=== PATIENT | male | born 1960 | race Caucasian/White ===

== ENCOUNTER → 2023-11-30 07:34 | Outpatient (CLI) | payer BC, SELFPAY ==
[2023-11-30 09:00] LABS: Hematocrit 42.8 % (41-53); Hemoglobin 14.8 g/dL (13.5-17.5); Mean Corpuscular HGB Conc 34.6 % (30-36); Mean Corpuscular Volume 98.5 fL (80-100); Platelet Count 191 X10^3/uL (150-400); Red Blood Cell Count 4.35 X10^6/uL (4.5-5.9); Red Cell Distribution Width 13.2 % (11.6-14.8); White Blood Cell Count 6.2 X10^3/uL (4.5-11.0)
[2023-11-30 09:22] LABS: Alanine Aminotransferase 26 IU/L (<50); Albumin 4.1 g/dL (3.5-5.0); Albumin Globulin Ratio 1.4 (1.0-2.8); Alkaline Phosphatase 77 U/L (38-126); Aspartate Aminotransferase 39 IU/L (17-59); BUN Creatinine Ratio 18.8 (6-22); Blood Urea Nitrogen 13 mg/dL (9-20); Calcium 9.3 mg/dL (8.4-10.2); Carbon Dioxide 29 mmol/L (22-32); Chloride 104 mmol/L (98-107); Cholesterol 198 mg/dL (140-199); Estimated Glomerular Filt Rate > 60 mL/min (>60); Globulin 2.9 g/dL (1.7-4.1); Glucose 92 mg/dL (80-110); HDL Cholesterol 55 mg/dL (40-60); HEMOLYSIS < 15 (0-50); LDL Cholesterol Calculated 126 mg/dL (<100); Potassium 4.3 mmol/L (3.4-5.1); Sodium 136 mmol/L (137-145); Triglycerides 86 mg/dL (35-150)
[2023-11-30 09:58] LABS: Prostate Specific Antigen 1.34 ng/mL (0.10-4.00)
[2023-11-30 11:01] LABS: Appearance Urine UA CLEAR; Bilirubin Urine UA NEGATIVE (NEGATIVE); Color Urine UA YELLOW; Glucose Urine UA NEGATIVE (Negative); Ketones Urine UA NEGATIVE (NEGATIVE); Leukocyte Esterase Urine UA NEGATIVE (NEGATIVE); Nitrite Urine UA NEGATIVE (Negative); Occult Blood Urine UA NEGATIVE (Negative); Protein Urine UA NEGATIVE (Negative); Urobilinogen Urine UA 0.2 E.U./dL (0.2); pH Urine UA 7.5 (4.5-8.0)
[2023-11-30 11:29] LABS: Bacteria Urine None Seen; Culture Indicated Urine Cult Not Indicated; RBC Urine 0-1/HPF (0-5/HPF); Squamous Epithelial Cell Urine 0-1 /HPF (0-5/HPF); Urine Volume 10mL (spun); WBC Urine 0-1/HPF (0-5/HPF)
== END ==
LOC: LAB 07:37
PROVIDERS: PCP Specialist; Referring Provider Specialist; Visit Provider Specialist
DX: Z00.00 Encounter for general adult medical examination without abnormal findings (principal)
CPT/HCPCS: 36415; 80053; 80061; 81001; 84153; 85027

== ENCOUNTER → 2024-01-18 14:48 | Outpatient (CLI) | payer OTHER, SELFPAY ==
[2024-01-18 20:43] LABS: Influenza A - CEPHEID Flu A NEGATIVE (NEGATIVE); Influenza B - CEPHEID Flu B NEGATIVE (NEGATIVE); Respiratory Syncytial Virus Negative (Negative)
[2024-01-18 20:44] LABS: COVID-19 CEPHEID 4-PLEX PCR Negative (Negative)
== END ==
PROVIDERS: PCP Family Medicine; Visit Provider Family Medicine
DX: J30.2 Other seasonal allergic rhinitis (principal); R09.81 Nasal congestion
CPT/HCPCS: 0241U

== ENCOUNTER → 2024-02-15 06:42 | Outpatient (CLI) | payer OTHER, SELFPAY ==
[2024-02-15 09:46] LABS: Prostate Specific Antigen 0.963 ng/mL (0.10-4.00)
== END ==
PROVIDERS: PCP Family Medicine; Referring Provider Specialist; Visit Provider Specialist
DX: N40.1 Benign prostatic hyperplasia with lower urinary tract symptoms (principal); N13.8 Other obstructive and reflux uropathy
CPT/HCPCS: 36415; 84153

== ENCOUNTER 2024-03-20 08:20 | Day surgery (SDC) | payer OTHER, SELFPAY ==
--- NOTE | 2024-03-20 08:52 | P.HP_ITS ---
History of Present Illness History of Present Illness Date Patient Seen: 03/20/24 Time Patient Seen: 08:52 Chief complaint: Colonoscopy Narrative: Kieran is a 63-year-old man here for colonoscopy. His last colonoscopy was about 7 years ago in [place] and was normal. He has had polyps on prior colonoscopies. 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 [facility] Medical History Hx of colonic polyps Surgical History History of vasectomy [place] teeth removed (09/03/79) Hx of left knee surgery (09/03/92) Family History Mother Ovarian carcinoma Uterine cancer Aunt Colorectal cancer Grandmother Breast cancer Social History marital status: number of children: 0 household members: spouse occupational status: previously employed Smoking Status: Never smoker substance use type: does not use caffeine: No Type(s) of exercise: aerobic frequency: 5-6 times per week duration: 60-90 minutes/day Meds Home Medications and Allergies Home Medications Medication Instructions Recorded Confirmed Type tamsulosin 0.4 mg capsule 0.4 mg PO 2XD 01/18/24 03/13/24 History Allergies Allergy/AdvReac Type Severity Reaction Status Date / Time No Known Drug Allergies Allergy Verified 03/20/24 08:53 Exam Const General: healthy appearing Resp Effort & Inspection: normal respiratory effort Assessment & Plan Assessment and plan (1) Hx of colonic polyps: Status: Acute (2) CHEK2 gene mutation positive: Status: Acute Plan Kieran is a 63-year-old man with a history of colon polyps. We reviewed the risks and benefits of colonoscopy and he would like to proceed. Time-Based Coding :: [TOTAL MINUTES] spent with patient and on the chart (including review of chart, obtaining history, exam, reviewing outside data, placing orders, documenting exam and treatment plan, and counseling patient) on [DATE].
[2024-03-20 08:55] VITALS: BP 144/80; PULSE 62; RESP 18; TEMP 36.6; O2SAT 100
[2024-03-20] MEDS: LACTATED RINGERS 1,000 ML 42 ML IV (09:10)
--- NOTE | 2024-03-20 09:54 | PM.OP.COLON ---
Operative Date/Time/Diagnoses Date of procedure: 03/20/24 Time of procedure: 09:54 Pre-op diagnosis: History of polyps Post-op diagnosis: same Procedure & Clinicians Study performed: Colonoscopy Same procedure as scheduled: Yes Surgeon: José Antonio Vincent Procedure Notes Procedure in detail: Surgeon: José Antonio Vincent MD Anesthesia: Myrtle aCsey CRNA Procedure: The patient was brought to the endoscopy suite, placed in left lateral decubitus position. The patient was connected to monitoring devices. A time-out was performed. Sedation was administered. Once the patient was adequately sedated, a digital rectal exam was performed and was normal. The scope was then inserted and advanced to the cecum where the appendiceal orifice was identified and photographed. The scope was then slowly withdrawn over greater than 6 minutes. The mucosa was thoroughly inspected. No polyps were found. The scope was retroflexed in the rectum. No other abnormalities were seen. The scope was straightened and removed. The patient was awakened and brought to recovery. Scope withdrawal time: 8 minutes Sedation time: 18 minutes EBL: 0 Findings: Normal colon Post-procedure Recommendations: Colonoscopy in 10 years Disposition: PACU
[2024-03-20 09:58] VITALS: BP 118/74; PULSE 50; RESP 13; TEMP 36.8; O2SAT 99
[2024-03-20 10:03] VITALS: BP 118/75; PULSE 52; RESP 17; O2SAT 99
[2024-03-20 10:08] VITALS: BP 119/75; PULSE 48; RESP 13; O2SAT 98
[2024-03-20 10:09] VITALS: BP 118/69; PULSE 51; RESP 13; TEMP 36.2; O2SAT 100
== END 2024-03-20 10:21 | disposition home or self-care (01) ==
PROVIDERS: PCP Family Medicine; Referring Provider Surgery; Visit Provider Surgery
PROC: 0DJD8ZZ Inspection of Lower Intestinal Tract, Via Natural or Artificial Opening Endoscopic (ICD-10-PCS; CPT 45378; principal; 2024-03-20 09:15)
DX: Z12.11 Encounter for screening for malignant neoplasm of colon (principal); Z86.010 Personal history of colon polyps; Z15.89 Genetic susceptibility to other disease
CPT/HCPCS: 45378; J2704

== ENCOUNTER → 2024-06-04 09:13 | Outpatient (CLI) | payer OTHER, SELFPAY | PROVIDERS: PCP Family Medicine; Visit Provider Urology | DX: Z01.818 Encounter for other preprocedural examination (principal); N40.1 Benign prostatic hyperplasia with lower urinary tract symptoms; N13.8 Other obstructive and reflux uropathy | CPT/HCPCS: 87086 ==

== ENCOUNTER 2024-06-16 06:09 | Day surgery (SDC) | payer OTHER, SELFPAY ==
[2024-06-11 12:08] VITALS: BMI 22.8
[2024-06-16] VITALS (16 sets, daily range): BP systolic 115–148; BP diastolic 49–80; PULSE 50–63; RESP 9–18; TEMP 36.2–37.7; O2SAT 98–100; BMI 22.5
--- NOTE | 2024-06-16 | PATH_ITS ---
[facility] Accession Number: [id number] No. of containers..01 Tissue . 01 Material submitted: . prostate - PROSTATE . 01 Diagnosis: PROSTATIC TISSUE, TRANSURETHRAL RESECTION: Benign prostatic parenchyma, weight 1 gram, with focal mild chronic inflammation and stromal hyperplasia. Negative for atypia or invasive carcinoma. Benign urothelial mucosa also present. MRV 06/19/2024 1521 Local . 01 Electronically signed: . Laxmi Palma MD, Pathologist NPI- [id number] . 01 Gross description: . Received in formalin with two patient identifiers and prostate tissue, are multiple rey soft tissue fragments admixed with hemorrhagic material aggregating to 2.5 x 1.9 x 0.3 cm and weighing 1 gram. No lesions are identified. Specimen is submitted entirely in A1. ([id number]) /MRV 06/18/2024 1723 Local . 01 Pathologist provided ICD-10: N40.1 . 01 CPT . 372555 Specimen Comment: A courtesy copy of this report has been sent to [facility] Pathology Performed at: [address] [address], [place], [place] [id number] MD Rey Patterson MD Phone: [phone]
[2024-06-16] MEDS: ACETAMINOPHEN 325 MG TABLET 975 MG PO (06:48)
[2024-06-16] MEDS: LACTATED RINGERS 1,000 ML 42 ML IV ×2 (06:50→08:41)
--- NOTE | 2024-06-16 07:27 | SUR.OPER ---
Lithotomy on padded OR bed, head on pillow, arms secured on padded arm boards at <90 degrees abduction. Legs secured in padded yellow fins stirrups.
--- NOTE | 2024-06-16 07:34 | PM.PREOP ---
Pre-operative Note COVID-19 COVID-19 status: Not tested Interval Note History & Physical reviewed/Exam performed by Physician: Yes Changes to H&P: No
[2024-06-16] MEDS: CEFAZOLIN 2 GM/100 ML PREMIX 100 ML IV (07:44)
--- NOTE | 2024-06-16 09:27 | P.OP_ITS ---
Procedure & Clinicians Procedure: Cystoscopy Aquablation Same procedure as scheduled: Yes Indications: 63 y/o M w/ BPH and bothersome LUTS that are not well controlled on Tamsulosin 0.4mg BID and strongly desires surgical management via an Aquablation procedure. Surgeon: Sher Moralez Click Yes if Unassisted: Yes Anesthesia Type: General Operative Notes Findings: Trilobar hypertrophy, small intravesical median lobe Closure Type: not applicable Specimen(s): other (Prostate chips) Applied: catheter Estimated Blood Loss (mL): 50 Blood products transfused: none Procedure in detail: After informed consent was obtained, the patient was identified brought to the operating room where he was placed in his supine position on the table. Once there anesthesia was induced and maintained. Ensuring an adequate level of anesthesia the patient was transitioned to the lithotomy position where after time-out he was prepped. After prepping, ensuring an adequate level of anesthesia, administration IV antibiotics and time-out 60 cc of ultrasound gel was instilled within the rectum and the ultrasound probe which had been attached to the TRUS stepper which was attached to the TRUS stepper articulating arm which was secured to the bed was advanced into the rectum under direct vision via the ultrasound. The ultrasound probe was then aligned and confirmation made that the prostate was centered and aligned in both the sagittal and transverse views. The bladder neck, verumontanum, central and transitional zones were identified. With the ultrasound in place and adjusted the patient was then draped in a sterile fashion. With the patient draped the 24 Occitan aqua beam handpiece was then inserted through the urethra and advanced into the bladder. Cystoscopy was then performed and no concerning bladder mass or lesions were noted. Bilateral ureteral orifices were noted to be orthotopic in nature. As the cystoscope was advanced the level of the sphincter, verumontanum, bladder neck were all identified via ultrasound and under direct vision. The aqua beam hand place was then secured to the handpiece articulating arm which had been secured to the bed. The Aquablation handpiece and TRUS probe were confirmed to be parallel and colinear. Confirmation was then made that the aqua beam handpiece and nozzle was centered and anterior to the bladder neck. The cystoscope was then retracted under direct vision in the sphincter and verumontanum were identified. The tip of the cystoscope was then placed proximal to the external sphincter. Compression was applied with the TRUS probe to the prostate. The alignment of the TRUS probe and aqua beam handpiece was once again confirmed. Horizontal alignment of the handpiece water jet was then performed. With these adjustments made, the treatment zones were then planned using real-time ultrasound. In the largest transverse view of the prostate the depth and radial angles were determined and set again in the transverse view of the prostate. In the longitudinal and sagittal view the Aquablation nozzle was identified and its position registered with the software and robot. The treatment contours were then determined and adjusted to reflect the intended margins of resection. Following our plan confirmation, the Aquablation resection treatment was started. A 2nd pass was then completed in similar fashion after the 1st pass had been completed. At this point, the Aqua hand piece was removed from the urethra. The 26Fr resectoscope was then inserted into the urethra and cystoscopy was repeated. The [employer] teacher was utilized to evacuate the blood clots from the bladder. The bladder neck was then resected using the bipolar Gyrus loop. Bilateral ureteral orifices were again identified and noted to be intact at case end. Hemostasis was obtained and noted to be excellent at case end. The resectoscope was then removed and a 24Fr Yarely 3-way hematuria catheter was inse rted through the urethra and into the bladder. 45cc of sterile water was utilized for balloon insufflation. Efflux was noted to be clear at case end. Anesthesia was reversed, he was extubated in the OR and transferred to the PACU in stable condition for recovery. Complications: none Post-operative Condition: stable Disposition: PACU Plan for aftercare: Will re-evaluate in a few hours and determine if he will be sent home with the catheter in place or be admitted overnight for continuous bladder irrigation.
--- NOTE | 2024-06-16 11:33 | SUR.PHASEII ---
Report called to [facility]
--- NOTE | 2024-06-16 11:46 | PC.NURSE ---
Patient arrived to room 207 at 1145, A&OX4, denies pain, VSS, on RA. He is able to move himself from gurney to bed. Oriented to room, admission completed, call light in reach, CBI running (fruit punch colored) [place] draining adequately, frequent rounding. is supportive at bedside.
--- NOTE | 2024-06-17 06:57 | PC.NURSE ---
CBI stopped at 0620, pt ambulated in the hallway 4 times. total output for assistant secretary was 3,300 ml and total CBI WAS 4,500.
--- NOTE | 2024-06-17 07:58 | PM.PN.1 ---
Subjective Subjective Date Patient Seen: 06/17/24 Time Patient Seen: 07:45 Interval history: 63 y/o M w/ BPH and bothersome LUTS who strongly desired surgical management via an Aquablation procedure. He tolerated the procedure without any complications and had an uneventful night in the hospital. He was tolerating a regular diet without nausea or vomiting and his pain remained well controlled. His CBI was discontinued this AM and he was able to ambulate 3-4 laps in the hallways without issues. He is eager to have his catheter removed. Exam Vital Signs (past 8 hours): Oxygen Delivery Method Room Air Oxygen Flow Rate 0 Narrative Exam Narrative: GEN: Alert and oriented X3. No acute distress. Well-nourished. EYES: PERRLA, EOMI. HENT: Moist mucus membranes, no scleral icterus, normal neck ROM. RESP: Unlabored breathing, equal rise and fall of chest bilaterally, no cyanosis appreciated. CV: No peripheral edema, unremarkable heart rate. ABD: Soft, non-tender, non-distended, no palpable masses. : Price catheter secured and draining light pink urine without clots. EXT: No edema, clubbing or cyanosis. SKIN: No rashes or lesions. NEURO: No focal neurologic deficits, CN II-XII grossly intact. PSYCH: Cooperative, appropriate mood and affect. [facility] Medical History Hx of colonic polyps Surgical History History of vasectomy [place] teeth removed (09/03/79) Hx of left knee surgery (09/03/92) Family History Mother Ovarian carcinoma Uterine cancer Aunt Colorectal cancer Grandmother Breast cancer Social History marital status: number of children: 0 household members: spouse occupational status: previously employed Smoking Status: Never smoker alcohol intake: never substance use type: does not use caffeine: No Type(s) of exercise: aerobic frequency: 5-6 times per week duration: 60-90 minutes/day Assessment & Plan Assessment and plan (1) BPH w urinary obs/LUTS: Status: Acute Plan: 63 y/o M w/ h/o BPH and bothersome LUTS who strongly desired surgical management via an Aquablation procedure. He is POD 1 and is recovering as expected. His price catheter was removed this AM. - Will continue to hydrate well - Will contact the nursing team every time that he urinates so that they can record his UOP and his PVR - Will check on him around lunch, should he be adequately emptying his bladder and his urine remains relatively clear will discharge home. Time-Based Coding :: [TOTAL MINUTES] spent with patient and on the chart (including review of chart, obtaining history, exam, reviewing outside data, placing orders, documenting exam and treatment plan, and counseling patient) on [DATE]. Quality VTE Deep Vein Thrombosis/Pulmonary Embolism Present on Admission: No PROFEE Charge codes Subsequent inpatient/observation care: 20250
[2024-06-17 08:00] VITALS: BP 138/76; PULSE 54; RESP 16; TEMP 37.2; O2SAT 99
--- NOTE | 2024-06-17 12:54 | PC.NURSE ---
Patient is A&OX4, VSS, afebrile. He is ambulatory this a.m. walking laps around nursing station after CBI clamped at 0630. He tolerates this well. Urine pink colored in Price. MD at bedside early this a.m. to d/c price. Patient voids at 1000- 350 cc with PVR 65 and again at 1100 he voids 375cc with a PVR of 87. He tolerates breakfast well and denies any symptoms or pain with ambulation. MD at bedside at lunch to d/c patient. He verbalizes understanding of discharge instructions, OTC meds, activity limitations and follow up appointment with urology. He is escorted out of the hospital by FLIGHT INSPECTOR to private vehicle with for discharge home today at 1245 pm.
--- NOTE | 2024-06-17 14:26 | CM.DANOTE ---
Initial DCP Assessment Visit Note Reviewed EMR and team rounds for medical status and updates. Pt discharged prior to this PATIENT SERVICES COORDINATOR's ability to meet with him f/f due to floor triage needs. Pt lives with his at baseline in their own home in [place]. He was medically cleared for home d/c and his transported him home. He will have OP Urology f/u to discuss progress and next steps. Payor: Beata Wright Attending: Dr. Nassar Pt is a 63 year-old M post-op day 1 from an aquablation procedure due to chronic urinary retention. He had no difficulties postoperatively, and was actually up walking the halls earlier in the day. He was d/c'd following his ability to urinate once the price catheter was removed. No further d/c needs identified at this time. Discharge Planning/Care Management CM Discharge Assessment Start: 06/17/24 14:22 Freq: Status: Active Protocol: Document 06/17/24 14:22 DPL (Rec: 06/17/24 14:25 DPL [id number]) Discharge Planning Assessment Assigned Assayer Helper FRANKY Blanchard Advance Directives? Yes Advance Directives on File No History Provided By Patient Has Patient been admitted in last 30 No days? Prior Living Arrangements House Household Members spouse Type of transporation used prior to Drives own vehicle admit Independent with ADL's Yes Is patient alert and oriented? Yes Comment N/A Caregiver for Another No Comment OP Urology f/u Barriers to Discharge No Discharge Plan Home Transportation Arrangement Spouse Additional Comment N/A Review Status In Process Please Provide Date Initial DC 06/17/24 Assessment Was Performed Pre-Anesthesia Assessment Start: 06/11/24 12:08 Freq: Status: Discharge Protocol: Document 06/11/24 12:08 LB (Rec: 06/11/24 12:15 LB [id number]) Pre-Anesthesia Assessment PAC Comment 06/11/24 Chart review only. Preferred Name Kieran Patient Information Reviewed Via Chart Review Diagnostic Results Urinalysis Comment 06/04/24 at . Primary Care Provider Justyn Zaragoza Seen Specialist in Last 12 Months Yes Specialist Seen Urologist Primary Language Beninese Preferred Language Beninese Talent Acquisition Specialist Required No Height 172.72 cm Weight 68.039 kg Body Mass Index (BMI) 22.8 Anesthesia Review Requested No Oil Distributor Tender No alcohol intake never Smoking Status Never smoker Substance Use Type does not use Patient is completely paralyzed or No completely immobile CPAP/BIPAP use not prescribed Currently Taking a Beta Sravanthi No Anti-Coagulant Therapy No Cardiac Testing No Hx Pacemaker/ICD No Bladder Pattern Frequency,Nocturia,Retention, Urgency Diabetes No Presence of External or Internal Medical No Devices Marital Status Lives With spouse Patient Discharge Plan Description Return Home Emergency Contact Name Nahomi Abdullahi - Emergency Contact Advance Directives? Yes Advance Directives on File No
== END 2024-06-17 12:45 | disposition home or self-care (01) ==
LOC: OR 06:10 → AC 06:10
PROVIDERS: PCP Family Medicine; Referring Provider Urology; Visit Provider Urology
PROC: 0VT08ZZ Resection of Prostate, Via Natural or Artificial Opening Endoscopic (ICD-10-PCS; CPT 0421T; principal; 2024-06-16 07:45)
DX: N40.1 Benign prostatic hyperplasia with lower urinary tract symptoms (principal); N13.8 Other obstructive and reflux uropathy
CPT/HCPCS: 0421T; C2596; J0330; J0690; J1100; J1171; J2405; J2704

== ENCOUNTER → 2024-12-03 08:03 | Outpatient (CLI) | payer OTHER, SELFPAY ==
[2024-06-16 06:17] VITALS: BMI 22.5
[2024-12-03 09:00] LABS: Hematocrit 43.3 % (41-53); Hemoglobin 14.9 g/dL (13.5-17.5); Mean Corpuscular HGB Conc 34.6 % (30-36); Mean Corpuscular Hemoglobin 33.6 PG (26-34); Mean Corpuscular Volume 97.2 fL (80-100); Platelet Count 181 X10^3/uL (150-400); Red Blood Cell Count 4.45 X10^6/uL (4.5-5.9); Red Cell Distribution Width 13.4 % (11.6-14.8); White Blood Cell Count 4.2 X10^3/uL (4.5-11.0)
[2024-12-03 09:24] LABS: Alanine Aminotransferase 31 IU/L (<50); Albumin 4.3 g/dL (3.5-5.0); Albumin Globulin Ratio 1.7 (1.0-2.8); Alkaline Phosphatase 79 U/L (38-126); Aspartate Aminotransferase 46 IU/L (17-59); BUN Creatinine Ratio 17.5 (6-22); Bilirubin Total 0.9 mg/dL (0.2-1.3); Blood Urea Nitrogen 14 mg/dL (9-20); Calcium 9.4 mg/dL (8.4-10.2); Carbon Dioxide 26 mmol/L (22-32); Chloride 100 mmol/L (98-107); Cholesterol 207 mg/dL (140-199); Estimated Glomerular Filt Rate > 60 mL/min (>60); Globulin 2.6 g/dL (1.7-4.1); Glucose 96 mg/dL (80-110); HDL Cholesterol 54 mg/dL (40-60); HEMOLYSIS < 15 (0-50); LDL Cholesterol Calculated 133 mg/dL (<100); Potassium 4.7 mmol/L (3.4-5.1); Sodium 135 mmol/L (137-145); Total Protein 6.9 g/dL (6.3-8.2); Triglycerides 98 mg/dL (35-150)
[2024-12-03 09:52] LABS: Prostate Specific Antigen Scrn 0.589 ng/mL (0.1-4.0)
[2024-12-03 10:09] LABS: HIV 1 & 2 Ab/Ag 4th Gen Combo NEGATIVE (NEGATIVE); Hep C Virus Ab w/Reflex Quant NEGATIVE s/c (NEGATIVE)
== END ==
PROVIDERS: PCP Family Medicine; Referring Provider Family Medicine; Visit Provider Family Medicine
DX: Z12.5 Encounter for screening for malignant neoplasm of prostate (principal); E78.00 Pure hypercholesterolemia, unspecified; Z11.4 Encounter for screening for human immunodeficiency virus [HIV]; Z13.220 Encounter for screening for lipoid disorders; Z11.59 Encounter for screening for other viral diseases
CPT/HCPCS: 36415; 80053; 80061; 85027; 86803; 87389; G0103

== ENCOUNTER → 2025-06-13 08:53 | Outpatient (CLI) | payer OTHER, SELFPAY ==
[2024-06-16 06:17] VITALS: BMI 22.5
[2025-06-13 09:52] LABS: COVID-19 CEPHEID 4-PLEX PCR Negative (Negative); Influenza A - CEPHEID Flu A NEGATIVE (NEGATIVE); Influenza B - CEPHEID Flu B NEGATIVE (NEGATIVE)
== END ==
PROVIDERS: PCP Family Medicine; Visit Provider Nurse Practitioner Family
DX: R05.1 Acute cough (principal)
CPT/HCPCS: 87637

== ENCOUNTER → 2025-07-16 08:20 | Outpatient (CLI) | payer OTHER, SELFPAY ==
[2024-06-16 06:17] VITALS: BMI 22.5
[2025-07-16 09:41] LABS: Prostate Specific Antigen 0.831 ng/mL (0.10-4.00)
== END ==
PROVIDERS: PCP Family Medicine; Referring Provider Family Medicine; Visit Provider Urology
DX: R97.20 Elevated prostate specific antigen [PSA] (principal)
CPT/HCPCS: 36415; 84153